=== PATIENT | male | born 1935 | race Caucasian/White ===

== ENCOUNTER 2016-11-20 19:49 | Observation (INO) | payer MEDICARE, OTHER ==
--- NOTE | 2016-11-20 20:35 | ERNOTE ---
Neuro HPI ER Record Presenting Symptoms: parasthesia - left side of face Time Seen by Provider: 11/20/16 20:16 Source: patient, family Exam Limitations: no limitations Immunizations: IMMUNIZATION HX Immunizations Up to Date Yes History of Influenza Vaccine No Hx Pneumococcal Vaccination No Allergies/Adverse Reactions: Allergies Allergy/AdvReac Type Severity Reaction Status Date / Time Sulfa (Sulfonamide Allergy Unknown Verified 10/06/14 16:30 Antibiotics) [Sulfa(Sulfonamide Antibiotics)] Cephalosporins AdvReac Mild RASH Verified 10/06/14 16:30 Penicillins AdvReac Mild RASH Verified 10/06/14 16:30 Home Medications: HOME MEDICATIONS Clopidogrel Bisulfate [Plavix] 37.5 mg PO DAILY 04/25/13 [Last Taken Unknown] Lisinopril [Zestril] 20 mg PO BID 04/25/13 [Last Taken Unknown] [place] Oral Tablet 1 tab PO DAILY 10/06/14 [Last Taken Unknown] Cyanocobalamin (Vitamin B-12) [Vitamin B-12] 500 mcg PO DAILY 10/06/14 [Last Taken Unknown] Ginkgo Biloba [place] Extract [Ginkgo] 60 mg PO 3XW 10/06/14 [Last Taken Unknown] Lansoprazole [Prevacid] 15 mg PO DAILY PRN 10/06/14 [Last Taken Unknown] Multivitamins [Multivitamin Lesley] 1 cap PO DAILY 10/06/14 [Last Taken Unknown] [place]-3 Fatty Acids/Fish Oil [Fish Oil 1,200 mg Softgel] 1 each PO DAILY [Last Taken Unknown] Ubidecarenone [Co Q-10] 200 mg PO Q7D 10/06/14 [Last Taken Unknown] Vitamin B Complex [B Complex] 1 each PO 3XW 10/06/14 [Last Taken Unknown] Vitamin E (Dl,Tocopheryl Acet) [Vitamin E] 400 units PO 3XW 10/06/14 [Last Taken Unknown] Zinc 50 mg PO 3XW 10/06/14 [Last Taken Unknown] Garlic 1,000 mg PO 3XW 02/09/16 [Last Taken Unknown] metFORMIN HCL [Glucophage] 500 mg PO DAILY 02/09/16 [Last Taken Unknown] Ascorbic Acid [Vitamin C] 500 mg PO 3XW 02/19/16 [Last Taken Unknown] Beta-Carotene(A) W-C & E/Min [Antioxidant Softgel] 1 cap PO Q7D 02/19/16 [Last Taken Unknown] Cholecalciferol (Vitamin D3) [Vitamin D3] 400 unit PO DAILY 02/19/16 [Last Taken Unknown] Flaxseed Oil [Flax Seed Oil] 1,200 mg PO 2XW 02/19/16 [Last Taken Unknown] Glucosamine/D3/[place]ia Iris [Glucosamine-Vitamin D3 Caplet] 1 each PO DAILY 02/19/16 [Last Taken Unknown] Sennosides/Docusate Sodium [Senokot-S] 2 tab PO HS #60 tablet 02/22/16 [Last Taken Unknown] - History of Present Illness Narrative: Pt was driving home and began to feel some "numbness" on the left side of his face. He states it progressed to the side of his head. Onset: gradual onset - approximately 2 hours [facility] Severity: mild - Character of Deficits Altered sensation: Present: facial (lt) Baseline Cognition: Present: alert, oriented x 4 Baseline Gait: Present: walks w/o assistance Associated Symptoms: Denies: headache, altered mental status Review of Systems - Review of Systems Constitutional: Absent: recent illness, fever, chills EYE: Present: blurred vision ENT: Present: no symptoms reported Respiratory: Absent: shortness of breath Cardiology: Absent: chest pain Gastrointestinal/Abdominal: Absent: nausea, vomiting Genitourinary: Absent: frequency, pain, dysuria Musculoskeletal: Absent: back pain Skin: Present: no symptoms reported Neurological: Present: See HPI. Absent: headache Endocrine: Present: no symptoms reported Hematologic/Lymphatic: Present: no symptoms reported Psych: Present: no symptoms reported - Patient's Past Medical History Patient History - Medical: No pertinent hx, Cataracts, Diabetes Type 2, GERD Patient History - Cancer: No Hx of Cancer Patient History - Surgical Procedures: Colonoscopy, Total Knee Replacement - Family History Father Family History - Medical: , No pertinent hx Mother Family History - Medical: , Diabetes Type 2 Family History - Cardiac/Respiratory: No pertinent hx Sister Family History - Medical: No pertinent hx Family History - Cardiac/Respiratory: No pertinent hx son Family History - Medical: Seizures - Social History Living Situations: home Smoking Status: Former smoker Have you smoked in the past 12 months: No Do you dip or chew tobacco: No Alcohol Use: rarely Drug Use: none Physical Exam - Physical Exam General Appearance: Present: wd/wn, alert, no apparent distress Eye Exam: Normal inspection: bilateral, PERRL: bilateral, EOMI: bilateral Ears, Nose, Throat: Present: normal ENT inspection, hearing grossly normal Neck: Present: normal inspection, nontender Respiratory: Present: no respiratory distress, normal breath sounds, no accessory muscle use, chest nontender, lungs clear Cardiovascular/Chest: Present: regular rate, rhythm Gastrointestinal/Abdominal: Present: normal bowel sounds, nontender, nondistended, soft Extremity Exam: Present: normal inspection, non-tender, no edema, normal range of motion Neurological Exam: Present: alert, oriented, normal mood/affect, no motor/ sensory deficits Skin Exam: Present: normal color, warm/dry [place] Coma Scale - Assess Eye Opening: Spontaneous Motor: Obeys Commands Verbal: Oriented - Total Coma Scale Total: 15 Initial Stroke Assessment - Date/Time of assessment Stroke Scale Date: 11/20/16 Stroke Scale Time: 20:20 - NIH Stroke Scale Level of Consciousness: Alert LOC Questions (Year and Age): Answers both correctly LOC Commands (open/close eyes/fist): Performs both correctly Lateral Gaze Paresis: None Visual Field Loss: No visual loss Facial Palsy: Normal movement Right Arm Motor (10 sec hold): No drift Left Arm Motor (10 sec hold): No drift Right Leg Motor (5 sec hold): No drift Left Leg Motor (5 sec hold): No drift Limb Ataxia (finger/nose heel/pineda): Absent Sensory Loss (pinprick arms/legs/face): Mild, aware yet dulled Language Aphasia (description/naming/reading): No aphasia; normal Dysarthria (speech clarity): Normal articulation Neglect Inattention (visual/tactile/auditory/spatial/person): No neglect Initial Stroke Scale Score:: 1 - Stroke Risk Assessment Stroke Risk Assessment Level: 1-4 Mild Impairment Stroke Inclusion/Exclusion Cri - Inclusion Questions: Yes Onset of symptoms <3 1/2 hours of admission to ETC: Yes - Exclusion Questions: Major symptoms rapidly improving: No Seizure at onset of stroke: No SBP>185; DBP>110 at time treatment is to begin: No Patient received Heparin or Coumadin within 48 hours: No Blood glucose <50mg/dl or >400mg/dl: No - Total NIHSS Score Score:: 1 ED Progress - Results and Orders Patient's Lab Results:: I have reviewed the patient's lab results. Results and Orders: Laboratory Tests 11/20/16 11/20/16 11/20/16 20:39 21:02 21:02 WBC 5.7 Hgb 14.0 Hct 42.7 Plt Count 213 PT 10.4 INR (Anticoag Therapy) 1.00 PTT ([place]) 27.5 Sodium 138 Potassium 4.3 Chloride 102 Carbon Dioxide 25.9 Anion Gap 14.4 H BUN 17 Creatinine 1.01 Random Glucose 103 Calcium 8.7 Total Bilirubin 0.8 AST 11 ALT 21 Alkaline Phosphatase 55 Total Protein 6.8 Albumin 3.6 Urine Color Urine Appearance Urine pH Ur Specific [place] Urine Protein Urine Glucose (UA) Urine Ketones Urine Blood Urine Nitrate Urine Bilirubin Urine Urobilinogen Ur Leukocyte Esterase Urine RBC Urine WBC Ur Epithelial Cells Urine Bacteria Urine Culture Comments 11/20/16 21:02 WBC Hgb Hct Plt Count PT INR (Anticoag Therapy) PTT ([place]) Sodium Potassium Chloride Carbon Dioxide Anion Gap BUN Creatinine Random Glucose Calcium Total Bilirubin AST ALT Alkaline Phosphatase Total Protein Albumin Urine Color Yellow Urine Appearance Clear Urine pH 6.5 Ur Specific [place] 1.010 Urine Protein Negative Urine Glucose (UA) Negative Urine Ketones Negative Urine Blood 50 H Urine Nitrate Negative Urine Bilirubin Negative Urine Urobilinogen Normal Ur Leukocyte Esterase Negative Urine RBC 0-5 Urine WBC None seen Ur Epithelial Cells None seen Urine Bacteria None seen Urine Culture Comments No culture indicated - Vital Signs Patient's Vital Signs:: I have reviewed the patient's vital signs. Vital Signs: Vital Signs 11/20/16 11/20/16 19:50 20:12 Temperature 36.3 C L Pulse Rate 68 66 Respiratory 16 Rate Blood Pressure 158/61 O2 Sat by Pulse 96 Oximetry - CT/Ultrasound CT/Ultrasound Narrative: no acute intracranial processes - Progress/Reassessment Chief Complaint: CerebroVascular Accident Progress:: Improved Progress Note-Subjective: 11/20/16 20:[address] results and pt's minor S&S and that I believe that Tpa would be more risky than beneficial. Pt's family were in agreement. suggested obs admit to watch for further neurologic changes. Family agreed. 11/20/16 23:05 Spoke with Roslyn CABRERAP hospitalist she agrees with obs admit Departure Clinical Impression: Facial paresthesia - Departure Disposition: [facility] Condition: Good
[2016-11-20 20:47] LABS: Hematocrit 42.7 % (42.0-52.0); Mean Corpuscular Hemoglobin 29.2 pg (27-31); Mean Corpuscular Hgb Conc 32.8 g/dl (32-36); Mean Platelet Volume 10.2 fl (6.0-9.5); Neutrophil # 3.8 K/mm3 (1.3-6.0); Neutrophil % 66.1 % (42-75.0); Platelet Count 213 K/mm3 (150-450); Red Cell Distribution Width 12.3 % (11.5-14.0); White Blood Count 5.7 K/mm3 (4.0-10.5)
[2016-11-20 20:55] LABS: Albumin * 3.6 gm/dl (3.4-5.0); Anion Gap 14.4 mmol/L (6.8-13.8); BUN/Creatinine Ratio 16.8 (9.0-21.6); Bilirubin, Total 0.8 mg/dL (0.0-1.1); Ca. Corrected For Albumin 8.7 mg/dL (8.4-10.2); Calcium * 8.7 mg/dL (7.9-10.9); Carbon Dioxide 25.9 mmol/L (24-32.6); Potassium 4.3 mmol/L (3.4-4.6); Total Protein 6.8 gm/dL (6.2-8.2)
[2016-11-20 21:07] LABS: Prothrombin Time (Patient) 10.4 Seconds (9.4-11.4)
[2016-11-20 21:10] LABS: Partial Thrombolplastin Time 27.5 Seconds (24-32)
[2016-11-20 21:16] LABS: Urine Bilirubin Negative (NEGATIVE); Urine Blood 50 /ul (NEGATIVE); Urine Ketone Negative (NEGATIVE); Urine Nitrite Negative (NEGATIVE); Urine Protein Negative (NEGATIVE); Urine Urobilinogen Normal (NORMAL); Urine pH 6.5 pH (5.0-7.0)
[2016-11-20 21:28] LABS: Urine Appearance Clear; Urine Bacteria None Seen; Urine Color Yellow; Urine RBC 0-5 /hpf (0-5); Urine WBC None Seen /hpf (0-5)
--- NOTE | 2016-11-21 00:56 | HP ---
<Roslyn Mojica - Last Filed: 11/21/16 03:37> Chief Complaint - Chief Complaint Date of Service: 11/21/16 Time of Service: 00:48 Chief Complaint: "Left side facial numbness and LT hand numbenss. " History of Present Illness: Mr. Kemp is a 81-yr-old WM pt who sees RYNE Carter in [place]. His PMH involves: Colon Ca, DM II, HTN & GERD. Pt states that yesterday at about 7pm , he suddenly developed Lt sided facial numbness. The numbeness began on the jaw area and it spread upward to his face/head. He also developed Lt hand numbness. He was driving home when these symptoms developed. He denies the associated symptoms of facial drooping, unilateral weakness and slurry speech. He came to the [facility] ER via personal vehicle and he was triaged as CVA alert. A CT of the head was obtained and it did not show any evidence of Ischemic or hemorrhagic stroke. Pt will be admitted under observation status for to monitor for any neurological deterioration and for remote telemetry monitoring to screen for any arrhythmias. - Patient's Past Medical History Patient History - Medical: Cataracts, GERD, Other - Diabetes Patient History - Cardiac/Respiratory: Hypertension Patient History - Cancer: Colon Patient History - Surgical Procedures: Colon Resection, Colonoscopy, Total Knee Replacement - RT & LT. , Other - Colon resection, - Family History Father Family History - Medical: , No pertinent hx Mother Family History - Medical: , Diabetes Type 2 Family History - Cardiac/Respiratory: No pertinent hx Sister Family History - Medical: No pertinent hx Family History - Cardiac/Respiratory: No pertinent hx son Family History - Medical: Seizures - Social History Living Situations: spouse Smoking Status: Former smoker Have you smoked in the past 12 months: No Do you dip or chew tobacco: No Alcohol Use: rarely Drug Use: none - Immunizations Immunizations Up to Date: Yes Hx Pneumococcal Vaccination: Yes History of Influenza Vaccine: Yes Review Of Systems (GEN) - Review of Systems Generalized/Overall Review: Absent: Weakness, Chills, Fever, Fatigue EENTM: Absent: Eye Pain, Blurred Vision, Double Vision, Ear Pain, Ear Discharge Respiratory: Absent: Cough, Shortness of Breath, Wheezing Cardiac: Absent: Chest Pain, Edema, Palpitations Abdominal: Absent: Nausea, Vomiting, Hematemesis, Abdominal Pain, Bright blood from rectum Genitourinary: Absent: Burning, Itching, Urgency Musculoskeletal: Absent: Joint Pain, Back Pain, Muscle Pain, Neck Pain Neurological: Absent: Headache, Anxiety, Depressed, Weakness Skin: Absent: Dryness, Lesions Endocrine: Absent: Intolerance to Cold, Intolerance to Heat, Increased Hunger, Flushing, Increased Thirst Misc: All systems neg except as marked Allergies/Adverse Reactions: Allergies Allergy/AdvReac Type Severity Reaction Status Date / Time Sulfa (Sulfonamide Allergy Unknown Verified 10/06/14 16:30 Antibiotics) [Sulfa(Sulfonamide Antibiotics)] Cephalosporins AdvReac Mild RASH Verified 10/06/14 16:30 Penicillins AdvReac Mild RASH Verified 10/06/14 16:30 Home Medications: HOME MEDICATIONS [place] 1 tab PO 169911/21/16 [Last Taken Unknown] Ascorbic Acid [Vitamin C] 500 mg PO 11/21/16 [Last Taken Unknown] Beta-Carotene(A) W-C & E/Min [Antioxidant Softgel] 1 each PO 11/21/16 [Last Taken Unknown] Calcium Carbonate/Vitamin D3 [Calcium 600 + Vit D 400 Softgl] 1 each PO MO11/21/16 [Last Taken Unknown] Cholecalciferol (Vitamin D3) [Vitamin D3] 400 unit PO 169911/21/16 [Last Taken Unknown] Cinnamon Bark [Cinnamon] 500 mg PO UTH11/21/16 [Last Taken Unknown] Clopidogrel Bisulfate [Plavix] 37.5 mg PO 119911/21/16 [Last Taken Unknown] Cyanocobalamin (Vitamin B-12) [Vitamin B-12] 500 mcg PO 119911/21/16 [Last Taken Unknown] Flaxseed Oil [[place]-3 Flaxseed Oil] 1,200 mg PO MOTH 11/21/16 [Last Taken Unknown] Garlic 1,000 mg PO MOWE11/21/16 [Last Taken Unknown] Ginkgo Biloba [place] Extract [Ginkgo] 60 mg PO UTH11/21/16 [Last Taken Unknown] Gluc Liao Dipo Ch/Santos Liao/C/Nicolas [Glucosamine Chondroitin Caplet] 3 each PO 1600 11/21/16 [Last Taken Unknown] Lisinopril [Zestril] 20 mg PO BID 11/21/16 [Last Taken Unknown] Multivit-Min/FA/Lycopene/Lut [Centrum Silver Ultra Men's Tab] 1 each PO DAILY [Last Taken Unknown] Om3/Dha/Epa/Cod Liver Oil/A/D3 [Cod Liver Oil Softgel] 1 each PO 1200 11/21/16 [ Last Taken Unknown] [place]-3 Fatty Acids [Fish Oil] 1,000 mg PO WESA 11/21/16 [Last Taken Unknown] [place]-3 Fatty Acids [Fish Oil] 650 mg PO LIAO 11/21/16 [Last Taken Unknown] [place]-3/Dha/Epa/Fish Oil [Fish Oil [place]-3 EC 1,200 mg] 1 each PO TUFR 11/21/16 [Last Taken Unknown] Sennosides/Docusate Sodium [Senna-Docusate Sodium Tablet] 1 each PO BID [Last Taken Unknown] Ubidecarenone [Co Q-10] 200 mg PO LIAO 11/21/16 [Last Taken Unknown] Vitamin B Complex & Vit C No.4 [Super B Complex] 150 mg PO TUTHSA 11/21/16 [ Last Taken Unknown] Vitamin E 400 unit PO MOWEFR 11/21/16 [Last Taken Unknown] Zinc 50 mg PO TUTA 11/21/16 [Last Taken Unknown] metFORMIN HCL [Glucophage] 500 mg PO DAILY 11/21/16 [Last Taken Unknown] Exam - Exam Vital Signs: Vital Signs - Last Taken Temp 36.5 C 11/20/16 23:24 Pulse 62 11/20/16 23:30 Resp 16 11/20/16 23:24 BP 118/72 11/20/16 23:24 Pulse Ox 94 11/20/16 23:24 Constitutional: Present: Alert, Oriented x3, No distress ENT Exam: Present: normal ENT inspection, hearing grossly normal. Absent: nasal congestion, nasal drainage Eye Exam: bilateral eye: normal inspection, PERRL Neck: Present: full range of motion, supple, normal inspection, trachea midline Back Exam: Present: normal inspection Breasts: Present: Exam deferred Respiratory: Present: lungs clear, no accessory muscle use, No wheezing Cardiovascular/Chest: Present: normal peripheral pulses, regular rate, rhythm, no murmur Abdomen: Present: Normal bowel sounds, soft, nontender /Rectal: Present: Exam deferred Extremity: Present: normal range of motion, non-tender, normal inspection Skin Exam: Present: warm/dry, no cyanosis Lymphatic: Present: no adenopathy Neurologic: Present: no motor/sensory deficits, alert, other - Muscle Strength 5 /5 on BLE & BUE.. Absent: aphasia, facial droop, dizzy/light-headedness Appearance: Present: appropriate appearance, appropriate insight Eye contact: Present: cooperative, good eye contact, normal speech Thoughts: Present: normal thought pattern, no apparent hallucination Diagnostic Studies: Laboratory Results WBC 5.7 K/mm3 (4.0-10.5) 11/20/16 21: RBC 4.80 M/mm3 (4.7-6.0) 11/20/16 21: Hgb 14.0 gm/dL (13.5-18.0) 11/20/16 21: Hct 42.7 % (42.0-52.0) 11/20/16 21: MCV 89.0 fl (78-100) 11/20/16 21: MCH 29.2 pg (27-31) 11/20/16 21: MCHC 32.8 g/dl (32-36) 11/20/16 21: RDW 12.3 % (11.5-14.0) 11/20/16 21: Plt Count 213 K/mm3 (150-450) 11/20/16 21:02 MPV 10.2 fl (6.0-9.5) H 11/20/16 21:02 Immature Gran % (Auto) 0.40 % (0.001-0.429) 11/20/16 21:02 Immature Gran # (Auto) 0.02 K/mm3 (0.000-0.0310) 11/20/16 21: Neutrophils % 66.1 % (42-75.0) 11/20/16 21: Lymphocytes % 16.3 % (20-51) L 11/20/16 21: Monocytes % 14.2 % (0.0-9) H 11/20/16 21: Eosinophils % 2.1 % (0.0-3.0) 11/20/16 21: Basophils % 0.9 % (0.0-1.0) 11/20/16 21:02 Nucleated RBC % 0.0 k/mm3 (0-1) 11/20/16 21:02 Neutrophils # 3.8 K/mm3 (1.3-6.0) 11/20/16 21:02 Lymphocytes # 0.9 k/mm3 (1.5-3.5) L 11/20/16 21:02 Monocytes # 0.8 k/mm3 (0.0-1.0) 11/20/16 21:02 Eosinophils # 0.1 k/mm3 (0.0-0.7) 11/20/16 21:02 Absolute Basophils 0.1 k/mm3 (0.0-0.1) 11/20/16 21:02 ESR 6 mm/hr (0-10) 11/20/16 21:02 PT 10.4 Seconds (9.4-11.4) 11/20/16 21:02 INR (Anticoag Therapy) 1.00 INR (0.90-1.10) 11/20/16 21:02 PTT ([place]) 27.5 Seconds (24-32) 11/20/16 21:02 Sodium 138 mmol/L (132-142) 11/20/16 20:39 Plasma Sodium 138 mmol/L (130-142) 11/20/16 20:39 Potassium 4.3 mmol/L (3.4-4.6) 11/20/16 20:39 Chloride 102 mmol/L (97-106) 11/20/16 20:39 Carbon Dioxide 25.9 mmol/L (24-32.6) 11/20/16 20:39 Anion Gap 14.4 mmol/L (6.8-13.8) H 11/20/16 20:39 BUN 17 mg/dL (6-23) 11/20/16 20:39 Creatinine 1.01 mg/dL (0.4-1.4) 11/20/16 20:39 Est GFR (Non-Af Amer) 76 mL/min (60-130) 11/20/16 20:39 BUN/Creatinine Ratio 16.8 (9.0-21.6) 11/20/16 20:39 Random Glucose 103 mg/dL (70-110) 11/20/16 20:39 Calcium 8.7 mg/dL (7.9-10.9) 11/20/16 20:39 Calcium Adj for Albumin 8.7 mg/dL (8.4-10.2) 11/20/16 20:39 Total Bilirubin 0.8 mg/dL (0.0-1.1) 11/20/16 20:39 AST 11 U/L (0-48) 11/20/16 20:39 ALT 21 U/L (19-67) 11/20/16 20:39 Alkaline Phosphatase 55 U/L (50-170) 11/20/16 20:39 Total Protein 6.8 gm/dL (6.2-8.2) 11/20/16 20:39 Albumin 3.6 gm/dl (3.4-5.0) 11/20/16 20:39 Urine Color Yellow 11/20/16 21:02 Urine Appearance Clear 11/20/16 21:02 Urine pH 6.5 pH (5.0-7.0) 11/20/16 21:02 Ur Specific [place] 1.010 SP.GR. (1.005-1.030) 11/20/16 21:02 Urine Protein Negative mg/dL (NEGATIVE) 11/20/16 21:02 Urine Glucose (UA) Negative mg/dL (NEGATIVE) 11/20/16 21:02 Urine Ketones Negative mg/dL (NEGATIVE) 11/20/16 21:02 Urine Blood 50 /ul (NEGATIVE) H 11/20/16 21:02 Urine Nitrate Negative (NEGATIVE) 11/20/16 21:02 Urine Bilirubin Negative mg/dl (NEGATIVE) 11/20/16 21:02 Urine Urobilinogen Normal EU/dl (NORMAL) 11/20/16 21:02 Ur Leukocyte Esterase Negative /ul (NEGATIVE) 11/20/16 21:02 Urine RBC 0-5 /hpf (0-5) 11/20/16 21:02 Urine WBC None seen /hpf (0-5) 11/20/16 21:02 Ur Epithelial Cells None seen /hpf (0-5) 11/20/16 21:02 Urine Bacteria None seen (NONE) 11/20/16 21:02 Urine Culture Comments No culture indicated 11/20/16 21:02 Assessment/Plan - Assessment/Plan (1) TIA (transient ischemic attack) Assessment: Noted with sensory dysfunction on LT side face and LUE. No speech disturbances, unilateral weakness or visual loss. The ABCD 2 Score is 3 which is a low risk for subsequent stroke. He is already on plavix. will check fasting lipid to see needs statin therapy. Problem: Suspected (2) Left facial numbness Problem: Acute (3) Diabetes Problem: Chronic QualifierTitle: Diabetes mellitus type: type 2 (4) HTN (hypertension) Problem: Chronic QualifierTitle: Hypertension type: essential hypertension Qualified Code( s): I10 - Essential (primary) hypertension <Teja Morrison - Last Filed: 11/21/16 11:12> Immunizations: IMMUNIZATION HX Immunizations Up to Date Yes History of Influenza Vaccine Yes Hx Pneumococcal Vaccination Yes Exam - Exam Vital Signs: Vital Signs - Last Taken Temp 36.6 C 11/21/16 09:00 Pulse 55 L 11/21/16 09:02 Resp 18 11/21/16 09:00 BP 119/71 11/21/16 09:02 Pulse Ox 98 11/21/16 09:00 Diagnostic Studies: Abnormal Lab Results 11/21/16 Range/Units 05:25 LDL Cholesterol 68 L (70-130) mg/dL Cholesterol/HDL Ratio 2.7 L (3.3-5.0) mg/dL Laboratory Results WBC 5.7 K/mm3 (4.0-10.5) 11/20/16 21:02 RBC 4.80 M/mm3 (4.7-6.0) 11/20/16 21:02 Hgb 14.0 gm/dL (13.5-18.0) 11/20/16 21: Hct 42.7 % (42.0-52.0) 11/20/16 21: MCV 89.0 fl (78-100) 11/20/16 21:02 MCH 29.2 pg (27-31) 11/20/16 21: MCHC 32.8 g/dl (32-36) 11/20/16 21: RDW 12.3 % (11.5-14.0) 11/20/16 21:02 Plt Count 213 K/mm3 (150-450) 11/20/16 21:02 MPV 10.2 fl (6.0-9.5) H 11/20/16 21:02 Immature Gran % (Auto) 0.40 % (0.001-0.429) 11/20/16 21:02 Immature Gran # (Auto) 0.02 K/mm3 (0.000-0.0310) 11/20/16 21:02 Neutrophils % 66.1 % (42-75.0) 11/20/16 21:02 Lymphocytes % 16.3 % (20-51) L 11/20/16 21:02 Monocytes % 14.2 % (0.0-9) H 11/20/16 21:02 Eosinophils % 2.1 % (0.0-3.0) 11/20/16 21:02 Basophils % 0.9 % (0.0-1.0) 11/20/16 21: Nucleated RBC % 0.0 k/mm3 (0-1) 11/20/16 21: Neutrophils # 3.8 K/mm3 (1.3-6.0) 11/20/16 21:02 Lymphocytes # 0.9 k/mm3 (1.5-3.5) L 11/20/16 21:02 Monocytes # 0.8 k/mm3 (0.0-1.0) 11/20/16 21:02 Eosinophils # 0.1 k/mm3 (0.0-0.7) 11/20/16 21:02 Absolute Basophils 0.1 k/mm3 (0.0-0.1) 11/20/16 21:02 ESR 6 mm/hr (0-10) 11/20/16 21:02 PT 10.4 Seconds (9.4-11.4) 11/20/16 21:02 INR (Anticoag Therapy) 1.00 INR (0.90-1.10) 11/20/16 21:02 PTT ([place]) 27.5 Seconds (24-32) 11/20/16 21:02 Sodium 138 mmol/L (132-142) 11/20/16 20:39 Plasma Sodium 138 mmol/L (130-142) 11/20/16 20:39 Potassium 4.3 mmol/L (3.4-4.6) 11/20/16 20:39 Chloride 102 mmol/L (97-106) 11/20/16 20:39 Carbon Dioxide 25.9 mmol/L (24-32.6) 11/20/16 20:39 Anion Gap 14.4 mmol/L (6.8-13.8) H 11/20/16 20:39 BUN 17 mg/dL (6-23) 11/20/16 20:39 Creatinine 1.01 mg/dL (0.4-1.4) 11/20/16 20:39 Est GFR (Non-Af Amer) 76 mL/min (60-130) 11/20/16 20:39 BUN/Creatinine Ratio 16.8 (9.0-21.6) 11/20/16 20:39 Random Glucose 103 mg/dL (70-110) 11/20/16 20:39 Calcium 8.7 mg/dL (7.9-10.9) 11/20/16 20:39 Calcium Adj for Albumin 8.7 mg/dL (8.4-10.2) 11/20/16 20:39 Total Bilirubin 0.8 mg/dL (0.0-1.1) 11/20/16 20:39 AST 11 U/L (0-48) 11/20/16 20:39 ALT 21 U/L (19-67) 11/20/16 20:39 Alkaline Phosphatase 55 U/L (50-170) 11/20/16 20:39 Total Protein 6.8 gm/dL (6.2-8.2) 11/20/16 20:39 Albumin 3.6 gm/dl (3.4-5.0) 11/20/16 20:39 Triglycerides 59 mg/dL (30-200) 11/21/16 05:25 Cholesterol 125 mg/dL (0-200) 11/21/16 05:25 LDL Cholesterol 68 mg/dL (70-130) L 11/21/16 05:25 VLDL Cholesterol 12 mg/dL (5-40) 11/21/16 05:25 HDL Cholesterol 45 mg/dL (40-60) 11/21/16 05:25 Cholesterol/HDL Ratio 2.7 mg/dL (3.3-5.0) L 11/21/16 05:25 Urine Color Yellow 11/20/16 21:02 Urine Appearance Clear 11/20/16 21:02 Urine pH 6.5 pH (5.0-7.0) 11/20/16 21:02 Ur Specific [place] 1.010 SP.GR. (1.005-1.030) 11/20/16 21:02 Urine Protein Negative mg/dL (NEGATIVE) 11/20/16 21:02 Urine Glucose (UA) Negative mg/dL (NEGATIVE) 11/20/16 21:02 Urine Ketones Negative mg/dL (NEGATIVE) 11/20/16 21:02 Urine Blood 50 /ul (NEGATIVE) H 11/20/16 21:02 Urine Nitrate Negative (NEGATIVE) 11/20/16 21: Urine Bilirubin Negative mg/dl (NEGATIVE) 11/20/16 21:02 Urine Urobilinogen Normal EU/dl (NORMAL) 11/20/16 21:02 Ur Leukocyte Esterase Negative /ul (NEGATIVE) 11/20/16 21:02 Urine RBC 0-5 /hpf (0-5) 11/20/16 21:02 Urine WBC None seen /hpf (0-5) 11/20/16 21:02 Ur Epithelial Cells None seen /hpf (0-5) 11/20/16 21:02 Urine Bacteria None seen (NONE) 11/20/16 21:02 Urine Culture Comments No culture indicated 11/20/16 21:02 Assessment/Plan - Narrative Narrative: Mr Kemp did not relate a history of left hand numbness to me, even when I directly inquired. He had the sudden onset of left facial numbness about 1800 hour yesterday, which then spread to the entire left side of his head. It began to scottie by midnight, and is now gone. No prior. I directly supervised all of [facility]'s care for this patient. - Assessment/Plan (1) Diabetes Problem: Chronic Qualifiers: Diabetes mellitus type: type 2 Diabetes mellitus complication status: with unspecified complications Diabetes mellitus half-way insulin use: without emt intermediate use Qualified Code(s): E11.8 - Type 2 diabetes mellitus with unspecified complications (2) HTN (hypertension) Problem: Chronic Qualifiers: Hypertension type: essential hypertension Qualified Code(s): I10 - Essential (primary) hypertension (3) TIA (transient ischemic attack) Problem: Acute Qualifiers: Transient cerebral ischemia type: carotid artery syndrome (hemispheric) Qualified Code(s): 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
[2016-11-21] MEDS ORDERED: FLAXSEED OIL 1200 MG PO SCH (03:00)
[2016-11-21] MEDS ORDERED: ASPIRIN 81 MG TAB.CHEW PO ONE (05:38)
[2016-11-21] MEDS ORDERED: CINNAMON 500 MG PO SCH (05:45)
[2016-11-21] MEDS ORDERED: GINKGO BILOBA LEAF EXTRACT 60 MG PO SCH (05:45)
[2016-11-21 06:01] LABS: Chol/HDL Risk Ratio 2.7 mg/dL (3.3-5.0)
[2016-11-21 07:59] VITALS: BP 119/71
[2016-11-21] MEDS ORDERED: LISINOPRIL 20 MG TABLET PO SCH (09:00)
[2016-11-21] MEDS ORDERED: MULTIVIT WITH IRON-MINERALS 1 TAB TABLET PO SCH (09:00)
[2016-11-21] MEDS ORDERED: LISINOPRIL 40 MG TABLET PO SCH (09:00)
[2016-11-21] MEDS ORDERED: metFORMIN HCL 500 MG TABLET PO SCH (09:00)
[2016-11-21] MEDS ORDERED: ZINC 50MG PO SCH (09:00)
[2016-11-21] MEDS ORDERED: SENNOSIDES/DOCUSATE SODIUM 1 TAB TABLET PO SCH (09:00)
[2016-11-21] MEDS ORDERED: VITAMIN B COMP W-C 1 TAB TABLET PO SCH (09:00)
--- NOTE | 2016-11-21 10:42 | DS ---
(1) Diabetes Problem: Chronic Qualifiers: Diabetes mellitus type: type 2 Diabetes mellitus complication status: with unspecified complications Diabetes mellitus half-way insulin use: without half-way use Qualified Code(s): E11.8 - Type 2 diabetes mellitus with unspecified complications (2) HTN (hypertension) Problem: Chronic Qualifiers: Hypertension type: essential hypertension Qualified Code(s): I10 - Essential (primary) hypertension (3) TIA (transient ischemic attack) Problem: Acute Qualifiers: Transient cerebral ischemia type: carotid artery syndrome (hemispheric) Qualified Code(s): 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 Description of Stay: Following admission to the hospital, the numbness, which started about 1800 hour yesterday, slowly improved, starting about midnight last night. It is totally gone now, and he feels well. CT of head unremarkable. Can't have MRI due to metal knee hardware. EEG and Carotid dopplers pending. Planning to go to [place] for a week in two days. Procedures Performed: none Discharge Disposition: Home self care Disposition: Home self-care Condition: Good Discharge Activity: Activity as tolerated Discharge Diet: Consistent carbs Referrals: Rhona Ventura, [employer]ICER [Primary Care Provider] - Problem Oriented Discharge Instructions to Patient/Family: Transient Ischemic Attack, [id number] Additional Patient Instructions (free text): Followup in the office the week you return from [place]. Complete Home Medications List: Complete Home Medication List: [place] 1 tab PO 169911/21/16 Ascorbic Acid [Vitamin C] 500 mg PO MOWEFR 11/21/16 Beta-Carotene(A) W-C & E/Min [Antioxidant Softgel] 1 each PO LIAO 11/21/16 Calcium Carbonate/Vitamin D3 [Calcium 600 + Vit D 400 Softgl] 1 each PO MOWEFR 11/21/16 Cholecalciferol (Vitamin D3) [Vitamin D3] 400 unit PO 1700 11/21/16 Cinnamon Bark [Cinnamon] 500 mg PO SUTUTHSA 11/21/16 Clopidogrel Bisulfate [Plavix] 37.5 mg PO 1200 11/21/16 Cyanocobalamin (Vitamin B-12) [Vitamin B-12] 500 mcg PO 1200 11/21/16 Flaxseed Oil [[place]-3 Flaxseed Oil] 1,200 mg PO MOTH 11/21/16 Garlic 1,000 mg PO MOWEFR 11/21/16 Ginkgo Biloba [place] Extract [Ginkgo] 60 mg PO SUTUTHSA 11/21/16 Gluc Liao Dipo Ch/Santos Liao/C/Nicolas [Glucosamine Chondroitin Caplet] 3 each PO 1600 11/21/16 Lisinopril [Zestril] 20 mg PO BID 11/21/16 Multivit-Min/FA/Lycopene/Lut [Centrum Silver Ultra Men's Tab] 1 each PO DAILY Om3/Dha/Epa/Cod Liver Oil/A/D3 [Cod Liver Oil Softgel] 1 each PO 1200 11/21/16 [place]-3 Fatty Acids [Fish Oil] 1,000 mg PO WESA 11/21/16 [place]-3 Fatty Acids [Fish Oil] 650 mg PO LIAO 11/21/16 [place]-3/Dha/Epa/Fish Oil [Fish Oil [place]-3 EC 1,200 mg] 1 each PO TUFR 11/21/16 Sennosides/Docusate Sodium [Senna-Docusate Sodium Tablet] 1 each PO BID Ubidecarenone [Co Q-10] 200 mg PO LIAO 11/21/16 Vitamin B Complex & Vit C No.4 [Super B Complex] 150 mg PO TUTHSA 11/21/16 Vitamin E 400 unit PO MOWEFR 11/21/16 Zinc 50 mg PO TUTHSA 11/21/16 metFORMIN HCL [Glucophage] 500 mg PO DAILY 11/21/16
[2016-11-21] MEDS ORDERED: DHA PO SCH (12:00)
[2016-11-21] MEDS ORDERED: CLOPIDOGREL BISULFATE 75 MG TABLET PO SCH (12:00)
[2016-11-21] MEDS ORDERED: [UNRECOGNIZED DRUG - OTHER] PO SCH (12:00)
[2016-11-21] MEDS ORDERED: D3 PO SCH (12:00)
[2016-11-21] MEDS ORDERED: CYANOCOBALAMIN 1,000 MCG TABLET PO SCH (12:00)
[2016-11-21] MEDS ORDERED: EPA PO SCH (12:00)
[2016-11-21] MEDS ORDERED: COD LIVER OIL PO SCH (12:00)
[2016-11-21] MEDS ORDERED: Alfalfa PO SCH (17:00)
[2016-11-21] MEDS ORDERED: CHOLECALCIFEROL 400 UNIT TABLET PO SCH (17:00)
[2016-11-22] MEDS ORDERED: Garlic 1,000 MG PO SCH (05:36)
[2016-11-22] MEDS ORDERED: CALCIUM CARBONATE/VITAMIN D3 1 TAB TABLET PO SCH (09:00)
[2016-11-22] MEDS ORDERED: OMEGA-3 FATTY ACIDS 1 CAP CAPSULE PO SCH (09:00)
[2016-11-22] MEDS ORDERED: ASCORBIC ACID 500 MG TABLET PO SCH (09:00)
[2016-11-22] MEDS ORDERED: VITAMIN E (DL,TOCOPHERYL ACET) 400 UNITS CAPSULE PO SCH (09:00)
[2016-11-23] MEDS ORDERED: OMEGA-3 FATTY ACIDS 1 CAP CAPSULE PO SCH (09:00)
[2016-11-24] MEDS ORDERED: OMEGA 3 FATTY ACIDS PO SCH (02:50)
[2016-11-24] MEDS ORDERED: [UNRECOGNIZED DRUG - MIXTURE] PO SCH (05:36)
[2016-11-24] MEDS ORDERED: Co Q-10 200 MG PO SCH (05:36)
== END 2016-11-21 13:50 | disposition home or self-care (01) ==
LOC: ER 19:49 → MS 22:49
PROVIDERS: ADMIT Nurse Practitioner; ATTEND Allergy & Immunology
DX: G45.1 Carotid artery syndrome (hemispheric) (principal); I34.1 Nonrheumatic mitral (valve) prolapse; I10 Essential (primary) hypertension; E11.8 Type 2 diabetes mellitus with unspecified complications; K21.9 Gastro-esophageal reflux disease without esophagitis; Z96.651 Presence of right artificial knee joint; Z96.652 Presence of left artificial knee joint; Z85.038 Personal history of other malignant neoplasm of large intestine; Z83.3 Family history of diabetes mellitus; Z87.891 Personal history of nicotine dependence; Z79.899 Other long term (current) drug therapy
CPT/HCPCS: 36415; 70450; 71010; 80053; 80061; 81001; 85025; 85610; 85652; 85730; 93005; 93880; 95812; 99284; G0378

== ENCOUNTER 2016-12-24 09:15 | Day surgery (SDC) | payer MEDICARE, OTHER ==
--- NOTE | 2016-12-12 15:54 | HP ---
Chief Complaint - Chief Complaint Date of Service: 12/12/16 Chief Complaint: needs a follow up colonoscopy History of Present Illness: 81 yo male who had a right hemicolectomy in 2006 for adenocarcinoma. He had a follow up colonoscopy in 2010 and again in 2013 and now he presents for surveillance at his 10 year anniversary. No blood in stools (on plavix) and no abdominal complaints or pain. No weight loss and no night sweats. Recent labs, including LFTs were normal. No recent CT scan or CEA. He has a baseline constipation despite the colectomy and takes daily laxatives. - Patient's Past Medical History Patient History - Medical: Cataracts, Diabetes Type 2, GERD Patient History - Cardiac/Respiratory: Hypertension, Other Patient History - Cancer: Colon Patient History - Surgical Procedures: Colon Resection, Colonoscopy, Total Knee Replacement - RT & LT. , Other - shoulder surgery 2003 (left) Patient History - Other: None - Family History Family History:: no untoward family reactions to anesthesia, no familial bleeding tendencies, no family history of clotting disorders - Family History Father Family History - Medical: , No pertinent hx, Seizures Mother Family History - Medical: , Diabetes Type 2 Family History - Cardiac/Respiratory: No pertinent hx Sister Family History - Medical: No pertinent hx Family History - Cardiac/Respiratory: No pertinent hx son Family History - Medical: Seizures - Social History Living Situations: spouse Abuse History: No History of abuse Psych History: No pertinent hx Does anyone smoke in the home?: No Smoking Status: Former smoker Have you smoked in the past 12 months: No Alcohol Use: rarely Drug Use: none - Immunizations Immunizations Up to Date: Yes Hx Pneumococcal Vaccination: Yes History of Influenza Vaccine: Yes Review Of Systems (GEN) - Review of Systems Generalized/Overall Review: Absent: Malaise, Weight loss EENTM: Absent: Blurred Vision, Double Vision, Throat Pain Respiratory: Absent: Cough, Shortness of Breath Cardiac: Absent: Chest Pain, Palpitations Abdominal: Present: Constipation. Absent: Nausea, Vomiting, Abdominal Pain, Diarrhea, Bright blood from rectum Genitourinary: Present: Frequency, Dysuria. Absent: Burning, Urgency Musculoskeletal: Absent: Joint Pain, Joint Swelling Neurological: Present: Parasthesia. Absent: Headache, Depressed, Numbness Skin: Present: Bruising Endocrine: Present: No Symptoms Reported Allergies/Adverse Reactions: Allergies Allergy/AdvReac Type Severity Reaction Status Date / Time Sulfa (Sulfonamide Allergy Unknown Verified 10/06/14 16:30 Antibiotics) [Sulfa(Sulfonamide Antibiotics)] Cephalosporins AdvReac Mild RASH Verified 10/06/14 16:30 Penicillins AdvReac Mild RASH Verified 10/06/14 16:30 Home Medications: HOME MEDICATIONS [place] 1 tab PO 1700 11/21/16 [Last Taken Unknown] Ascorbic Acid [Vitamin C] 500 mg PO 11/21/16 [Last Taken Unknown] Beta-Carotene(A) W-C & E/Min [Antioxidant Softgel] 1 each PO ALMAGUER 11/21/16 [Last Taken Unknown] Calcium Carbonate/Vitamin D3 [Calcium 600 + Vit D 400 Softgl] 1 each PO MO11/21/16 [Last Taken Unknown] Cholecalciferol (Vitamin D3) [Vitamin D3] [place] [address]/21/16 [Last Taken Unknown] Cinnamon Bark [Cinnamon] 500 mg PO UTH11/21/16 [Last Taken Unknown] Clopidogrel Bisulfate [Plavix] 37.5 mg PO 119911/21/16 [Last Taken Unknown] Cyanocobalamin (Vitamin B-12) [Vitamin B-12] 500 mcg PO 119911/21/16 [Last Taken Unknown] Flaxseed Oil [[place]-3 Flaxseed Oil] 1,200 mg PO MOTH 11/21/16 [Last Taken Unknown] Garlic 1,000 mg PO MO11/21/16 [Last Taken Unknown] Ginkgo Biloba [place] Extract [Ginkgo] 60 mg PO SUTUTH11/21/16 [Last Taken Unknown] Gluc [place] Dipo Ch/Santos [place]/C/Nicolas [Glucosamine Chondroitin Caplet] 3 each PO 1600 11/21/16 [Last Taken Unknown] Lisinopril [Zestril] 20 mg PO BID 11/21/16 [Last Taken Unknown] Multivit-Min/FA/Lycopene/Lut [Centrum Silver Ultra Men's Tab] 1 each PO DAILY [Last Taken Unknown] Om3/Dha/Epa/Cod Liver Oil/A/D3 [Cod Liver Oil Softgel] 1 each PO 1200 11/21/16 [ Last Taken Unknown] [place]-3 Fatty Acids [Fish Oil] 1,000 mg PO WESA 11/21/16 [Last Taken Unknown] [place]-3 Fatty Acids [Fish Oil] 650 mg PO ALMAGUER 11/21/16 [Last Taken Unknown] [place]-3/Dha/Epa/Fish Oil [Fish Oil [place]-3 EC 1,200 mg] 1 each PO TUFR 11/21/16 [Last Taken Unknown] Sennosides/Docusate Sodium [Senna-Docusate Sodium Tablet] 1 each PO BID [Last Taken Unknown] Ubidecarenone [Co Q-10] 200 mg PO ALMAGUER 11/21/16 [Last Taken Unknown] Vitamin B Complex & Vit C No.4 [Super B Complex] 150 mg PO TUTHSA 11/21/16 [ Last Taken Unknown] Vitamin E 400 unit PO MOWEFR 11/21/16 [Last Taken Unknown] Zinc 50 mg PO TUTHSA 11/21/16 [Last Taken Unknown] metFORMIN HCL [Glucophage] 500 mg PO DAILY 11/21/16 [Last Taken Unknown] Exam - Exam Vital Signs: Vital Signs - Last Taken Temp 36.9 C 12/12/16 Pulse 80 Resp 17 BP 130/71 11/21/16 11:41 Pulse Ox Ht 6' Wt 194# Constitutional: Present: Alert, Oriented x3, Cooperative, Well developed, No distress, Looks Younger than stated age ENT Exam: Present: normal ENT inspection, hearing grossly normal Eye Exam: bilateral eye: normal inspection Back Exam: Present: normal inspection Respiratory: Present: lungs clear, normal breath sounds Cardiovascular/Chest: Present: normal peripheral pulses, regular rate, rhythm, systolic murmur Abdomen: Present: Normal bowel sounds, soft, nontender. Absent: obese, mass palpable /Rectal: Present: Exam deferred Extremity: Present: normal range of motion, no calf tenderness Skin Exam: Present: normal color, other - thin skin with some bruising Lymphatic: Present: no adenopathy Neurologic: Present: no motor/sensory deficits, alert, normal mood/affect, oriented x 3 Appearance: Present: appropriate appearance Eye contact: Present: cooperative, good eye contact Thoughts: Present: normal thought pattern Assessment/Plan - Narrative Narrative: 81 year old gentleman with history of colon cancer, presenting for surveillance colonoscopy. Reasonable at his age and health, and we can consider the future need if this scope is normal and no signs of recurrence. I discussed the RBIC with him and his . I think we can stay on the Plavix, be careful with any biopsies or polypectomies and, because his last one was normal, this one should be also. He understands the low risk of perforation. He will undergo a Suprep. It will be scheduled for later this month. - Assessment/Plan (1) Colon cancer Problem: Chronic Qualifiers: Colon location: ascending Qualified Code(s): C18.2 - Malignant neoplasm of ascending colon (2) Facial paresthesia Problem: Suspected (3) Sciatica Problem: Chronic Qualifiers: Laterality: unspecified laterality Qualified Code(s): M54.30 - Sciatica, unspecified side (4) Diabetes mellitus Problem: Chronic Qualifiers: Diabetes mellitus type: type 2 (5) GERD (gastroesophageal reflux disease) Problem: Chronic Qualifiers: Esophagitis presence: without esophagitis Qualified Code(s): K21.9 - Gastro -esophageal reflux disease without esophagitis (6) HTN (hypertension) Problem: Chronic Qualifiers: Hypertension type: essential hypertension Qualified Code(s): I10 - Essential (primary) hypertension (7) Mitral valve prolapse Problem: Chronic
[~2016-12-24 09:15] MED LIST: RINGERS SOLUTION,LACTATED 1,000 ML IV PRN
[2016-12-24] MEDS ORDERED: RINGERS SOLUTION,LACTATED 1,000 ML IV ONE (09:54)
[2016-12-24] MEDS ORDERED: RINGERS SOLUTION,LACTATED 1,000 ML IV PRN (11:45)
--- NOTE | 2016-12-24 11:50 | OR ---
Operative Report - Dictated Report Narrative: DATE OF PROCEDURE: 12/24/2016 PREOPERATIVE DIAGNOSIS: #1 Screening colonoscopy #2 history of colon cancer POSTOPERATIVE DIAGNOSIS: #1 Screening colonoscopy 2 history of colon cancer OPERATION: Colonoscopy SURGEON: Harrison Choudhary M.D. [facility] ANESTHESIA : Enrique Cardoza CRNA sedation INDICATIONS: This is a 81 year old male who presents for a colonoscopy. He had a colon resection 10 years ago for cancer. His last colonoscopy was 3 years ago. I have discussed the risks, benefits, indications, and contraindications for colonoscopy with the possibility of biopsy and/or polypectomy. He understands, agrees, and wishes to proceed. He has undergone a SUPREP and has tolerated it well. PROCEDURE: The patient was brought to the operating theater and placed into the left lateral decubitus position. The patient underwent sedation per anesthesia , and a digital rectal exam was performed. This was noted to be unremarkable. The patient was noted to have no internal or external hemorrhoids. The Olympus video colonoscope was introduced and advanced into the rectum. The rectum was normal in appearance. The scope was then advanced through the sigmoid, where no diverticular disease was noted. The scope was then advanced the entire length of the scope using standard reduction techniques. I did not visualize the anastomosis however. The prep appeared to be excellent with a [place] prep score of 9. Multiple manipulations the scope, withdrawn, pressure, laying on his back, and removing it completely is starting overall attempted, however the scope was advanced to 1 m quite easily and then could not be advanced any further secondary to looping. Once again after multiple attempts, I elected just to withdraw the scope slowly and transverse, descending, and sigmoid colon were examined in a circumferential fashion. The scope was brought back into the rectum where it was retroflexed in the lower rectum was examined. The air was decompressed, and the scope was then removed. Withdrawal time was 10 minutes. However, the entire procedure was approximately 40 minutes of attempting to advanced beyond to the anastomosis. POSTOPERATIVE CONDITION: The patient was awakened and taken to the ambulatory surgery center in good condition. No complications were encountered. FINDINGS: As noted above. No signs recurrent cancer, or polyps. Specimens: None EBL: 0 The findings were discussed with the patient and his . I do not recommend a follow-up colonoscopy for screening purposes because of his age. Although I cannot say i evaluated the anastomotic area, i was able to navigate easily to 100cm and this part of the colon was normal. It appeared that i was thru much of the transverse colon, but i cannot say exactly where the scope ended in relationship to the anastomosis. He has elected not to do any further investigation such as completion barium enema. I agree.
[2016-12-24 12:52] VITALS: BP 104/61
== END 2016-12-24 09:16 | disposition home or self-care (01) ==
LOC: AMB 09:15
PROVIDERS: ATTEND Surgery
PROC: 0DJD8ZZ Inspection of Lower Intestinal Tract, Via Natural or Artificial Opening Endoscopic (ICD-10-PCS; principal; 2016-12-24 10:50)
DX: Z12.11 Encounter for screening for malignant neoplasm of colon (principal); I10 Essential (primary) hypertension; E11.9 Type 2 diabetes mellitus without complications; K21.9 Gastro-esophageal reflux disease without esophagitis; Z85.038 Personal history of other malignant neoplasm of large intestine; Z87.891 Personal history of nicotine dependence